=== PATIENT | female | born 1935 | race Caucasian/White ===

== ENCOUNTER 2016-09-21 15:48 | Inpatient (IN) | payer OTHER ==
[~2016-09-21] VITALS: Ht 170 cm; Wt 111.0 kg
[2016-09-21 15:54] VITALS: BP 150/63
[2016-09-21] MEDS ORDERED: COZAAR100 MG PO (15:58)
[2016-09-21] MEDS ORDERED: LASIX40 MG PO (15:58)
[2016-09-21] MEDS ORDERED: LIPITOR80 MG PO (15:58)
[2016-09-21] MEDS ORDERED: COUMADIN7.5 M1 PO (15:59)
[2016-09-21] MEDS ORDERED: KLOR-CON M2020 ME1 PO (15:59)
[2016-09-21] MEDS ORDERED: SYMBICORT1 AE1 INH (15:59)
[2016-09-21] MEDS ORDERED: AMBIEN10 M1 PO (16:00)
[2016-09-21] MEDS ORDERED: MIRTAZAPINE45 M1 PO (16:00)
[2016-09-21] MEDS ORDERED: XANAX1 MG PO (16:00)
[2016-09-21 16:14] LABS: BASO # 0.1 10*3/uL (0.0-0.1); BASO % 0.7 % (0.0-1.0); EOS # 0.2 10*3/uL (0.0-0.4); EOS % 1.5 % (1.0-4.0); HEMOGLOBIN 14.4 g/dl (12.0-16.0); LYMPH # 2.4 10*3/uL (1.3-4.4); MEAN CORPUSCULAR HGB 31.1 pg (27.0-31.0); MEAN CORPUSCULAR HGB CONC 32.7 g/dl (33.0-37.0); MEAN PLATELET VOLUME 9.6 fl (9.6-12.3); MONO # 0.9 10*3/uL (0.1-1.0); MONO % 8.5 % (3.0-9.0); NEUT # 7.3 10*3/uL (2.3-7.9); PLATELET COUNT AUTOMATED 272 10*3/uL (130-400); RED BLOOD COUNT 4.63 10*6/uL (4.10-5.10); RED CELL DISTRI WIDTH 13.3 % (0-14.5); WHITE BLOOD COUNT 10.9 10*3/uL (4.8-10.8)
[2016-09-21 16:23] LABS: INTERNATIONAL NORM RATIO 4.3 (2.0-3.5); PROTHROMBIN TIME 47.2 SECONDS (9.0-12.4)
[2016-09-21 16:32] LABS: ALBUMIN 3.5 gm/dl (3.1-4.5); ALKALINE PHOSPHATASE 125 U/L (45-117); BILIRUBIN, TOTAL 0.7 mg/dl (0.2-1.0); BUN 13 mg/dl (7-24); CARBON DIOXIDE 31 mmol/L (21-32); CHLORIDE 104 mmol/L (98-107); EST GLOM FILT AFRICAN AMERICAN > 60 ml/min; GLUCOSE 103 mg/dL (65-99); POTASSIUM 4.2 mmol/L (3.5-5.1); SGOT/AST 19 IU/L (3-35); SGPT/ALT 22 U/L (12-78); SODIUM 142 mmol/L (136-145); TOTAL PROTEIN 7.7 gm/dL (6.4-8.2); TROPONIN I < 0.015 ng/ml (<0.5)
[2016-09-21 20:00] VITALS: BP 130/62
[2016-09-21 20:50] VITALS: BP 130/62
[2016-09-22] VITALS: BP 131/50
[2016-09-22 00:47] LABS: CKMB 1.5 ng/ml (0.5-3.6); CPK 78 U/L (26-192); TROPONIN I < 0.015 ng/ml (<0.5)
[2016-09-22] MEDS ORDERED: COUMADIN10 M1 PO (01:31)
[2016-09-22 06:04] LABS: BASO # 0.1 10*3/uL (0.0-0.1); BASO % 0.8 % (0.0-1.0); EOS # 0.3 10*3/uL (0.0-0.4); EOS % 2.9 % (1.0-4.0); HEMATOCRIT 39.7 % (37.0-47.0); HEMOGLOBIN 13.1 g/dl (12.0-16.0); LYMPH # 2.4 10*3/uL (1.3-4.4); LYMPH % 27.2 % (27.0-41.0); MEAN CELL VOLUME 94.1 fl (81.0-99.0); MEAN PLATELET VOLUME 9.7 fl (9.6-12.3); MONO # 0.9 10*3/uL (0.1-1.0); MONO % 9.8 % (3.0-9.0); NEUT # 5.2 10*3/uL (2.3-7.9); NEUT % 59.1 % (47.0-73.0); PLATELET COUNT AUTOMATED 257 10*3/uL (130-400); RED BLOOD COUNT 4.22 10*6/uL (4.10-5.10); RED CELL DISTRI WIDTH 13.3 % (0-14.5); WHITE BLOOD COUNT 8.9 10*3/uL (4.8-10.8)
[2016-09-22 06:08] LABS: CKMB 1.1 ng/ml (0.5-3.6); CPK 75 U/L (26-192)
[2016-09-22 06:10] LABS: TROPONIN I < 0.015 ng/ml (<0.5)
[2016-09-22 06:13] LABS: BUN 13 mg/dl (7-24); CARBON DIOXIDE 30 mmol/L (21-32); CHLORIDE 106 mmol/L (98-107); EST GLOM FILT AFRICAN AMERICAN > 60 ml/min; GLUCOSE 124 mg/dL (65-99); POTASSIUM 3.3 mmol/L (3.5-5.1); SODIUM 143 mmol/L (136-145)
[2016-09-22 06:23] LABS: INTERNATIONAL NORM RATIO 3.6 (2.0-3.5); PROTHROMBIN TIME 39.5 SECONDS (9.0-12.4)
[2016-09-22 08:00] VITALS: BP 106/52
[2016-09-22 12:00] VITALS: BP 110/42
[2016-09-22 12:28] LABS: CKMB 1.2 ng/ml (0.5-3.6); CPK 102 U/L (26-192)
[2016-09-22 12:29] LABS: TROPONIN I < 0.015 ng/ml (<0.5)
[2016-09-22 14:21] LABS: BILIRUBIN NEGATIVE (NEGATIVE); BLOOD TRACE-INTACT (NEGATIVE); CLARITY CLOUDY (CLEAR); COLOR YELLOW (YELLOW); GLUCOSE NEGATIVE (NEGATIVE); KETONE NEGATIVE (NEGATIVE); LEUKO ESTERASE TRACE (NEGATIVE); NITRITE POSITIVE (NEGATIVE); PH 5.5 (5.0-9.0); PROTEIN NEGATIVE (NEGATIVE); SPECIFIC GRAVITY 1.025 (1.005-1.030); UROBILINOGEN 0.2 E.U./dl (0.2-1.0)
[2016-09-22 15:03] LABS: BACTERIA 4+; URINE REFLEX COMMENT YES (NO); WBC 16-20 wbc/hpf (0-5)
[2016-09-22 16:00] VITALS: BP 108/94
[2016-09-22 20:00] VITALS: BP 135/54
[2016-09-23] VITALS: BP 106/52
[2016-09-23 07:11] LABS: BUN 15 mg/dl (7-24); CARBON DIOXIDE 31 mmol/L (21-32); CHLORIDE 106 mmol/L (98-107); EST GLOM FILT AFRICAN AMERICAN > 60 ml/min; GLUCOSE 98 mg/dL (65-99); POTASSIUM 4.1 mmol/L (3.5-5.1); SODIUM 143 mmol/L (136-145)
[2016-09-23 07:16] LABS: INTERNATIONAL NORM RATIO 3.4 (2.0-3.5); PROTHROMBIN TIME 37.2 SECONDS (9.0-12.4)
[2016-09-23 08:00] VITALS: BP 108/56
[2016-09-23 12:00] VITALS: BP 113/43
[2016-09-23 16:00] VITALS: BP 110/50
[2016-09-23 20:00] VITALS: BP 124/56
[2016-09-24] VITALS: BP 104/53
[2016-09-24 07:13] LABS: INTERNATIONAL NORM RATIO 2.1 (2.0-3.5); PROTHROMBIN TIME 22.7 SECONDS (9.0-12.4)
[2016-09-24 08:00] VITALS: BP 100/80
[2016-09-24] MEDS ORDERED: Coumadin7.5 MG PO (11:25)
== END 2016-09-24 12:12 | disposition home or self-care (01) | DRG 914 ==
LOC: ED 15:48 → 5E 19:24 → EDHOLD 19:24 → 5E 19:55
PROVIDERS: Internal Medicine; Internal Medicine Hospice and Palliative Medicine; Student in an Organized Health Care Education/Training Program
DX: S09.90XA Unspecified injury of head, initial encounter (principal); D68.59 Other primary thrombophilia; J44.9 Chronic obstructive pulmonary disease, unspecified; E78.5 Hyperlipidemia, unspecified; I10 Essential (primary) hypertension; F41.9 Anxiety disorder, unspecified; I73.9 Peripheral vascular disease, unspecified; Z86.711 Personal history of pulmonary embolism; Z90.710 Acquired absence of both cervix and uterus; Z87.891 Personal history of nicotine dependence; Z80.1 Family history of malignant neoplasm of trachea, bronchus and lung; Z82.3 Family history of stroke; Z79.01 Long term (current) use of anticoagulants; W01.0XXA Fall on same level from slipping, tripping and stumbling without subsequent striking against object, initial encounter; Y93.89 Activity, other specified; Y92.098 Other place in other non-institutional residence as the place of occurrence of the external cause; Y99.8 Other external cause status